=== PATIENT | female | born 1995 | race Two or more races ===

== ENCOUNTER 2021-01-03 12:18 | Emergency (ER) | payer SELFPAY ==
[~2021-01-03] VITALS: Ht 167.6 cm; Wt 55.0 kg
[2021-01-03] MEDS ORDERED: TETANUS, DIPHTHERIA, PERTUSSIS VAC/PF 0.5ML (>7YR OLD) IM ONE (12:30)
[2021-01-03 12:44] LABS: BASOPHILS % 0.8 % (0.0-2.0); EOSINOPHILS % 3.3 % (0.0-5.0); HEMATOCRIT. 36.5 % (36.0-48.0); HEMOGLOBIN. 12.3 g/dL (12.0-16.0); LYMPHOCYTES % 34.9 % (20.0-50.0); MEAN PLATELET VOLUME 7.5 fl (7.4-10.4); MONOCYTES % 9.2 % (2.0-8.0); NEUTROPHILS % 51.8 % (40.0-76.0); PLATELET 311 x1000/uL (130-400); RED CELL DISTRIBUTION WIDTH 13.5 % (11.6-14.6)
[2021-01-03] MEDS ORDERED: FENTANYL CITRATE/PF 50MCG/ML 2ML VIAL IV ONE (12:45)
[2021-01-03 12:51] LABS: CHLORIDE 106 mEq/L (98-107)
[2021-01-03 12:55] LABS: PROTHROMBIN TIME 10.4 sec (9.6-11.0)
[2021-01-03 12:56] LABS: ETHANOL BLOOD < 10 mg/dL
[2021-01-03 14:20] LABS: HCG SCREEN NEGATIVE
[2021-01-03] MEDS: ACETAMINOPHEN 325MG TABLET PO ONE ×2 (15:02→16:32)
[2021-01-03 21:15] VITALS: BP 121/94
[2021-01-03] MEDS ORDERED: IOHEXOL-350 100 ML BOTTLE ONE (23:32)
== END 2021-01-03 21:19 | disposition home or self-care (01) ==
LOC: EDBD 12:18 → ER 12:18
DX: S71.132A Puncture wound without foreign body, left thigh, initial encounter (principal); Z87.820 Personal history of traumatic brain injury; X93.XXXA Assault by handgun discharge, initial encounter; Y93.89 Activity, other specified; Y92.830 Public park as the place of occurrence of the external cause; Y99.8 Other external cause status
CPT/HCPCS: 36415; 71045; 72170; 73552; 73706; 80053; 80320; 83605; 83690; 84703; 85025; 85610; 86850; 86900; 86901; 90471; 90715; 93005; 96374; 99285; J3010; Q9967; G0480